=== PATIENT | female | born 1970 | race Caucasian/White ===

== ENCOUNTER 2016-10-10 11:03 | Day surgery (SDC) | payer OTHER ==
[2016-10-10] VITALS (10 sets, daily range): BP systolic 115–140; BP diastolic 52–79; PULSE 56–97; RESP 13–19; O2SAT 97–100
[~2016-10-10] VITALS: Ht 170.2 cm; Wt 93.5 kg
[2016-10-10] MEDS ORDERED: Dexamethasone 4 mg/mL Inj ONE (11:04)
[2016-10-10] MEDS ORDERED: Ondansetron 2 mg/mL 2 mL Inj ONE (11:04)
[2016-10-10] MEDS ORDERED: Propofol 10,000 mCg/mL 20 mL Inj ONE (11:04)
[2016-10-10] MEDS ORDERED: fentaNYL-PF 50 mCg/mL 2 mL Inj ONE (11:04)
[2016-10-10] MEDS ORDERED: DIPH25CA6 PO (11:34)
[2016-10-10] MEDS ORDERED: OMEG300C3 PO (11:34)
[2016-10-10] MEDS ORDERED: ACET325T51 PO (11:34)
[2016-10-10] MEDS ORDERED: IBUP800T28 PO (11:34)
[2016-10-10] MEDS: Lactated Ringer's 1,000 ML IV SCH ×2 (11:46→13:08)
[2016-10-10] MEDS ORDERED: Lactated Ringer's 500 ML IV PRN (12:58)
[2016-10-10] MEDS ORDERED: Lactated Ringer's 1,000 ML IV SCH (12:58)
--- NOTE | 2016-10-10 12:58 | PCM.HPANE ---
Patient Data Surgeon Admitting Provider: Attending Provider:Germain Darby DPM Primary Care Physician:Isaac Kasper MD Other Provider:Rich Wei Anesthesia Reason for Visit Left Foot Retained Screw Ht/WT & BMI Height (Feet): 5 Height (Inches): 7 Weight (Kilograms): 93.5 Body Mass Index 32.00 Allergies Coded Allergies: morphine (Verified Adverse Reaction, Severe, PRURITIS, 10/07/16) Past Anesthesia History Anesthesia History: Denies:: Abnormal Airway, Anesthesia Reactions, Difficult Intubation, Fam Anesthesia Reaction, Fam Malignant Hypertherm, Malignant Hyperthermia Diabetes History Hx Diabetes?: No MRSA MRSA: No Medications Hypertension Medication: No Home Meds Incl Beta Ronda: No Reported Medications diphenhydrAMINE HCl (Benadryl)25 Mg [id number] Mg PO HS PRN Ref 0 10/10/16 Acetaminophen 325 Mg [id number] Mg PO Q4H PRN For Fever Ref 0 10/10/16 Ibuprofen 800 Mg [id number] Mg PO TID PRN For Pain Ref 0 10/10/16 [place]-3 Fatty Acids (Fish Oil)300 Mg [id number] Mg PO 10/10/16 Discontinued Reported Medications Multivit &Minerals/Ferrous Fum (Multivitamin Liquid)9 Mg/15 Ml Liquid9 Mg PO DAILY 02/02/14 Ca Cmb No.1/Vit D3/B-6/FA/B12 (Vitamin D3 1,000 Unit Tablet)1 Each Tablet1 Each PO DAILY 30 Days 02/02/14 [place]-3 Fatty Acids/Fish Oil (Fish Oil 1,000 mg Capsule)1 Each Capsule1 Each PO DAILY 02/02/14 History History of ENT Problems?: Yes HEENT History: Denies:: Abnormal Airway (S/P MANDIBULAR ADVANCEMENT) Cataracts Difficult Intubation Dysphagia Glaucoma Hearing Problem Sinus Problem TMJ Denture Type: None Teeth Condition: Within Normal Limits Hx of Heart Problems?: No Cardiovascular History: Denies:: AICD Abdominal Aortic Aneurism Atrial Fibrillation Cardiac Surgery Chest Pain Congestive Heart Failure Coronary Artery Disease Edema Heart Murmur Hypertension Irregular Heartbeat Pacemaker Peripheral Vascular Rheumatic Fever Thrombophlebitis Valvular Heart Disease Hx of Respiratory Problem?: No Respiratory History: Denies:: Asthma COPD Chest Surgery Cough Dyspnea Emphysema Hemoptysis Oxygen Administration Pneumonia Pulmonary Embolism Tuberculosis Use of C-PAP Machine Use of Inhalers / NEBS Hx Neurologic Problems?: No Hx of GI Problems?: No Hx of Problems?: No Female Hx: Denies:: Currently Skin History: Denies:: History Skin Disorders? Pressure Ulcers Hx Musculoskeletal Problems?: Yes Musculoskeletal History: Positive for:: Musculoskeletal Trauma (S/P LT BUNIONECTOMY RETAINED SCREW LT FOOT=-CURRENT PROBLEM) Hx of Psycho/Social Problems?: No Hx Surgeries?: Yes (hyst, mandibular advancement,LT BUNIONECTOMY) Hx Any Other Health Problems?: Yes Other History: Denies:: Cancer Endocrine Disease Hospitalization Thyroid Disease History Blood Transfusions: Denies:: Blood Transfusions Hx Diabetes: No Hx Alcohol Use: NoHx Substance Use: No Smoking Status: Former Smoker Have You Smoked inLast 12 mo: No Stop/Bang S-Snoring: Do You Snore Loudly: No T-Tired: feel tired, fatigued: No O-Obsered: Observed not breath: No P-Blood Pressure: treated: No B- Body Mass Index > 35 kg/m2: No A- Age over 50: No N- Neck Large Circumference: Yes G- Gender Male: No ANGEL Total Score: 1 ANGEL Risk Assessment: Low Risk, <3 Yes Risk Assessment Category Category 1A: Patient has history of documented sleep apnea, and HAS NOT received any narcotic, sedative or anesthesia administration during this stay. Category 1B: Patient has history of documented sleep apnea, and HAS received any narcotic , sedative or anesthesia administration during this stay Category 2: Patient has SUSPECTED Obstructive Sleep Apnea, and HAS received any narcotic , sedative or anesthesia administration during this stay. Category 3: Patient has SUSPECTED Obstructive Sleep Apnea and HAS NOT received narcotic, sedative or anesthesia administration during this stay. Category 4: Outpatient in Procedural Areas with known sleep apnea or who screen positive for High Risk via the STOP/BANG questionnaire. Exam Exam Vital Signs Vital Signs Date Time Temp Pulse Resp B/P Pulse Ox O2 Delivery O2 Flow Rate FiO2 10/10/16 11:52 36.4 68 16 140/78 98 Room Air General Appearance: Alert, Oriented X3, Cooperative, No Acute Distress HEENT/AIRWAY: MP 2 Lungs: Clear to Auscultation, Normal Air Movement Heart: Exam Unremarkable, Regular Rate/Rhythm, No Murmurs/Rubs/Gallops Meds/Labs/Diagnostics Admission Meds Current Medications Lactated Ringer's (Lr) 1,000 ml @ 120 mls/hr Q8H20M IV Last administered on 5/ 26/17at 11:46; Start 10/10/16 at 05:00; Stop 10/10/16 at 13:19 Plan Impression Patient chart reviewed, patient interviewed and anesthestic plan with risks, benefits, and alternatives discussed, and informed consent obtained. NPO per Anesth. Guidelines: Yes ASA Physical Status: ASA2 Mod Systemic Disease Anesthetic Plan: GA Bene/Risks/Altern/Consents: Yes HP Complete Prior to Induction: Yes Oswaldo Olvera MD October 10, 2016 12:26
[2016-10-10] MEDS ORDERED: Atropine 0.4 mg/mL Inj IVPUSH PRN (13:00)
[2016-10-10] MEDS ORDERED: fentaNYL-PF 50 mCg/mL 2 mL Inj IVPUSH PRN (13:00)
[2016-10-10] MEDS ORDERED: MetoCLOpramide 5 mg/mL 2 mL Inj IVPUSH PRN (13:00)
[2016-10-10] MEDS ORDERED: EPHEDrine Sulfate 50 mg/mL Inj IVPUSH PRN (13:00)
[2016-10-10] MEDS ORDERED: HYDROmorphone 1 mg/mL Inj IVPUSH PRN (13:00)
[2016-10-10] MEDS ORDERED: Labetalol 5 mg/mL 4 mL Inj IV PRN (13:00)
[2016-10-10] MEDS ORDERED: Ondansetron 2 mg/mL 2 mL Inj IVPUSH PRN (13:00)
[2016-10-10] MEDS ORDERED: Phenylephrine 10,000 mCg/mL Inj IVPUSH PRN (13:00)
[2016-10-10] MEDS ORDERED: Bupivacaine-MPF 0.5% 30 mL Inj INFILTRATE ONE (13:07)
--- NOTE | 2016-10-10 13:35 | PCM.ANEP1 ---
Post Anesthesia PACU Phase 1 Assessment Vital Signs Vital Signs Date Time Temp Pulse Resp B/P Pulse Ox O2 Delivery O2 Flow Rate FiO2 10/10/16 13:30 36.5 81 19 130/69 99 Nasal Cannula 2 10/10/16 13:24 37 97 13 134/77 99 Nasal Cannula 2 10/10/16 11:52 36.4 68 16 140/78 98 Room Air Anesthetic Administered: GA Level of Alertness: Awake, talking RODRIGUEZ's with Equal Strength: Yes Pain: No Nausea or Vomiting: No CV Function & Hydration Stable: Yes Airway Device: Oxygen Delivery: Nasal Cannula Lungs: Clear to Auscultation, Normal Air Movement PACU Phase 2 Assessment Complications: No Follow up Care: N/A Patient Instructions Provided: N/A Oswaldo Olvera MD October 10, 2016 13:35
--- NOTE | 2016-10-10 13:35 | PCM.PODBR ---
Immediate Operative Note Date of Service: October 10, 2016 Date of Service October 10, 2016 Pre Operative Diagnosis Screw deep left foot Post Operative Diagnosis Same Procedure Removal of implant (screw) deep left foot Surgeon Surgeon: Germain Darby DPM Assistants: None Findings Screw Grafts, Implants: None Complications There were no periprocedural complications identified. Condition Stable Anesthetic Administered: GA Drains: None Catheters: None Output, Estimated Blood Loss: 1 Blood Admin during surgery: No Surgical Cast or Splint: None Surgical Specimen Removed: Not applicable Surgical Specimen sent to Path: Not applicable Post Operative Plan D/C when ready f/u my office 10/15/16 Germain Darby DPM October 10, 2016 13:35
[2016-10-10] MEDS ORDERED: HYDROcodone-APAP 5-325 mg Tablet PO ONE (14:25)
--- NOTE | 2016-10-10 19:43 | OP ---
[address] [address] OPERATIVE REPORT PATIENT: YUE HIDALGO : 1970 MR#: [id number] ADMIT: 10/10/2016 JOB ID: [id number] DATE OF SURGERY: 10/10/2016 SURGEON: Germain Darby DPM PREOPERATIVE DIAGNOSIS(ES): Retained screw, deep left foot. POSTOPERATIVE DIAGNOSIS(ES): Retained screw, deep left foot. OPERATION PERFORMED: Removal of the implant, deep screw left foot. ANESTHESIA: General plus local anesthesia. HEMOSTASIS: None. ESTIMATED BLOOD LOSS: Minimal. INDICATIONS: This patient has two retained screws in the 1st metatarsal of the left foot following bunion surgery. These screws were proven to be painful to the patient. After consideration of risks and benefits of surgery, patient would like to have these screws removed. DESCRIPTION OF SURGERY: Patient brought to the operating room and placed on table in supine position. General anesthetic administered. Following administration of general anesthesia, 20 cc of 0.5% Marcaine with epinephrine were infiltrated about the 1st ray in a Morrell style block. Pneumatic tourniquet applied to the left ankle and left foot was then prepped and draped in usual aseptic manner. Attention was directed to the dorsal aspect of the distal 1st metatarsal where a hypodermic needle and fluoroscopy was utilized to locate the head of the 1st screw to be removed. A stab incision was then made over the head of the screw. This was deepened via blunt dissection. The screw was then removed in total. Again, utilizing needle and fluoroscopy, the 2nd screw head was localized. Stab incision was made over this screw head. It was then removed in total. The site was then lavaged. Steri-Strips were used to approximate the stab incisions. Dexamethasone 4 mg was then infiltrated to the surgical site for postoperative analgesia. A dry sterile compressive dressing was applied to the foot. The patient was then taken from the operating room to the PACU with vital signs stable. Capillary filling time within normal limits to all digits with no apparent complications related to surgery or anesthesia.
== END 2016-10-10 23:59 | disposition home or self-care (01) ==
LOC: SAS 11:03
PROVIDERS: ATTEND Podiatrist
PROC: 0QPP04Z Removal of Internal Fixation Device from Left Metatarsal, Open Approach (ICD-10-PCS; principal; 2016-10-10 13:00)
DX: T84.84XA Pain due to internal orthopedic prosthetic devices, implants and grafts, initial encounter (principal); M72.2 Plantar fascial fibromatosis; Z87.891 Personal history of nicotine dependence
CPT/HCPCS: 20680; 76000; J1100; J1885; J2250; J2405; J3010; J7120

== ENCOUNTER 2017-01-26 19:27 | Emergency (ER) | payer OTHER ==
[~2017-01-26] VITALS: Ht 170.2 cm; Wt 94.5 kg
[~2017-01-26 19:27] MED LIST: ACET325T51 PO; DIPH25CA6 PO; IBUP800T28 PO; OMEG300C3 PO
[2017-01-26 20:08] VITALS: BP 162/93; PULSE 102; RESP 16; O2SAT 100
--- NOTE | 2017-01-26 21:28 | DRSVH ---
PROCEDURE: X-RAY MANDIBLE COMPLETE, MINIMUM FOUR VIEWS ([id number]) INDICATIONS: HIT WITH A 12LB MEDICINE BALL TECHNIQUE: 4 views of the mandible were acquired. COMPARISON: None. FINDINGS: Bones: No fractures or dislocations. No suspicious bony lesions. Soft tissues: Visualized sinuses appear clear. No suspicious soft tissue densities. IMPRESSION: No visualized acute fracture or dislocation. However, if clinical concern and/or pain pe rsist, short interval imaging followup in 7-10 days is recommended, as occult injury cannot be defini tively excluded. Dictated by: Chelsey Valles M.D. on 01/26/2017 at 21:25 Approved by: Chelsey Valles M.D. on 01/26/2017 at 21:27
--- NOTE | 2017-01-26 22:12 | ED.REPORT ---
HPI-Head Prob / Injury Date of Service Jan 26, 2017 ED Provider: Emiliano Mckinney MD Pt is a 46 y/o female who presents to the ED complaining of severe jaw pain s/p hitting her jaw with a 12 lb medicine ball onset prior to arrival. She reports that she "saw stars" during the incident, and does not remember if she lost consciousness. She describes her pain as worse on the left side than the right, but there is pain bilaterally. Pt had mandibular advancement surgery in 1993 in which four screws were placed. She denies numbness/tingling, nausea, vomiting, dizziness, or any other symptoms. Nursing Notes Stated Complaint: HIT IN JAW WITH A 12LB MEDICINE BALL Chief Complaint: Head, Face, Neck Trauma Nursing Notes Reviewed: Yes Allergies: Coded Allergies: morphine (Verified Adverse Reaction, Severe, PRURITIS, 01/26/17) Scheduled PRN Acetaminophen (Acetaminophen) 325 Mg Tablet 325 MG PO Q4H PRN PRN For Fever Ibuprofen (Ibuprofen) 800 Mg Tablet 800 MG PO TID PRN PRN For Pain Ibuprofen (Ibuprofen) 600 Mg Tablet 600 MG PO QID PRN PRN For Pain diphenhydrAMINE HCl (Benadryl) 25 Mg Capsule 50 MG PO HS PRN PRN Miscellaneous Medications [place]-3 Fatty Acids (Fish Oil) 300 Mg Capsule 300 MG PO General Time Seen by Provider: 22:15 Chief Complaint Other (jaw pain ) Hx Obtained From: Patient Arrived By: Walk-in Onset Occurred: Just prior to arrival Symptom Duration: Constant Quality: Painful Severity: Current: Moderate Severity: Maximum: Severe Recent Healthcare: No recent doctor visit, No recent hospitalization Similar Sx Previous: No Risk-Head Prob / Injury )( IC Bleed Risk Strat RF Statements: Risk factors reviewed Past Medical History Past Medical History Denies Past Surgical History Mandibular advancement in 1993 - [address] Left bunionectomy Reports: Hysterectomy Smoking History Former Smoker Ambulatory Status Independent Review of Systems Jaw pain bilaterally, worse on left than right GI: Denies: Nausea, Vomiting Neurologic: Denies: Dizziness, Numbness Complete sys rev & neg: except as marked. Physical Exam Initial Vital Signs Vital Signs (First) Date Time Temp Pulse Resp B/P Pulse Ox O2 Delivery O2 Flow Rate FiO2 01/26/17 20:08 37.1 102 16 162/93 100 Room Air Initial VS: Reviewed Abdomen / GI: Soft, Non-tender Extremities: Vascular intact, Neuro intact, No swelling, No tenderness Skin: Warm, Dry, No cyanosis Psychiatric: Mood/affect normal, Behavior normal, Normal thought content General/Constitutional: Awake, Alert Head / Eyes: Normocephalic Trismus, only can open jaw less than 1 inch No crepitus ENT: Atraumatic, Airway patent, Tympanic membs NL Neck: Supple, Full range of motion Neurologic: Oriented X3, Speech NL Interpretation & Diagnostics CT MAXILLOFACIAL: Conclusion: No acute maxillofacial fractures. Interpret - Radiologist MANDIBLE X-RAY: IMPRESSION: No visualized acute fracture or dislocation. However, if clinical concern and/or pain persist, short interval imaging followup in 7-10 days is recommended, as occult injury cannot be definitively excluded. Dictated by: Chelsey Valles M.D. on 01/26/2017 at 21:25 Approved by: Chelsey Valles M.D. on 01/26/2017 at 21:27 Re-Eval/Medical Decision Med Decision/Clinical Course 46-year-old with a blow to her chin, with some dental malocclusion reason concern. Plain films were not abnormal, and her malocclusion is probably due to muscular strain and edema. Due to her prior surgery, CT was obtained and is also negative for acute fracture. She is reassured by this. Discharge sounds stable condition for ice to the affected TMJ, ibuprofen and follow up with PCP. Source of Hx: Old records Re-Evaluation/Progress : Time of Eval: 23:46 Patient Status: Condition improved Re-Evaluation/Progress Note: Patient rechecked. Discussed plan for discharge. Patient understands and agrees with plan. F/U instructions and RTER warnings given. All questions addressed at this time. Counseled Regarding: Diagnosis, Lab results, Need for follow-up, When/why to return to ED Discharge & Departure Primary Impression: Contusion of mandibular joint area Encounter type: initial encounter Qualified Code: S00.83XA - Contusion of other part of head, initial encounter Additional Impression: Contusion of jaw Encounter type: initial encounter Qualified Code: S00.83XA - Contusion of other part of head, initial encounter Disposition: Home All VS Reviewed: Yes Condition: Stable Additional Instructions: Ibuprofen four times daily as needed for pain. Ice to the affected side may be helpful in reducing swelling in the muscle and an returning to function more rapidly. Do that for the first twenty-four hours only. You can use warm packs after that. Referrals: Isaac Kasper MD (PCP) Scribe Attestation Portions of this note were transcribed by Sandra Koenig. I, Dr. Mckinney, personally performed the history, physical exam and medical decision-making; I reviewed and confirmed the accuracy of the information in the transcribed note. copies to: Isaac Kasper MD, Christopher W MD Jan 26, 2017 22:11 Sandra Koenig Jan 26, 2017 22:20
[2017-01-26] MEDS ORDERED: IBUP-1827 PO (23:43)
[2017-01-26 23:58] VITALS: BP 113/77; PULSE 77; RESP 18; O2SAT 98
--- NOTE | 2017-01-27 11:27 | DRSVH ---
PROCEDURE: CT FACE WITHOUT CONTRAST ([id number]) INDICATIONS: bite mal-alignment p trauma, neg plain films TECHNIQUE: Noncontrast 1.5 mm thick axial images acquired from the mandible through the frontal sinuses, with co cayetano and sagittal reformatting. For radiation dose reduction, the following was used: automated ex posure control. COMPARISON: None. FINDINGS: Image quality: Excellent. Bones and teeth: Orbital schmitt are intact. Sinus schmitt show no fracture or deformity. Nasal bones and septum are intact. Visualized portions of the mandible demonstrate no fractures or subluxation. Zygomatic arches are intact. Pterygoid plates are intact. Visualized portions of the skull base an d auditory canals are intact. Bilateral mandibular surgical hardware is present, intact. Sinuses: Paranasal sinuses are aerated, without fluid levels. There is prominent mucosal thickening and near complete occlusion of the right ostiomeatal complex. Minimal scattered pansinus mucosal thic kening is present. Mastoid air cells are aerated. Soft tissues: No edema, masses, or fluid collections. No enlarged lymph nodes. No soft tissue lace rations or debris. Vascular: Visualized vascular structures appear normal in the absence of contrast. Bony vascular fo ramina and canals are intact. IMPRESSION: No visualized facial fractures. No visualized TMJ malalignment. Dictated by: Chelsey Valles M.D. on 01/27/2017 at 10:46 Approved by: Chelsey Valles M.D. on 01/27/2017 at 11:25
== END 2017-01-26 23:58 | disposition home or self-care (01) ==
LOC: SED 19:27
DX: S00.83XA Contusion of other part of head, initial encounter (principal); W21.09XA Struck by other hit or thrown ball, initial encounter; Y93.89 Activity, other specified; Y92.89 Other specified places as the place of occurrence of the external cause; Y99.8 Other external cause status; Z98.890 Other specified postprocedural states; Z90.710 Acquired absence of both cervix and uterus; Z87.891 Personal history of nicotine dependence; Z88.5 Allergy status to narcotic agent